=== PATIENT | female | born 1990 | race Caucasian/White ===

== ENCOUNTER 2021-12-25 17:20 | Emergency (ER) | payer SELFPAY ==
[2021-12-25 17:31] VITALS: BP 165/93; PULSE 69; RESP 16; TEMP 36.6; O2SAT 96; BMI 32.5
[2021-12-25 18:05] VITALS: BP 165/93; PULSE 69; RESP 16; TEMP 36.6; O2SAT 96; BMI 32.4
--- NOTE | 2021-12-25 18:18 | EXP.UTC ---
Discharge Plan Disposition Patient Disposition: Home, Self-Care Condition: Good Prescriptions Prescriptions: New amoxicillin-pot clavulanate 875-125 mg Tablet 1 tab PO Q12H Qty: 20 0RF ibuprofen 600 mg tablet 600 mg PO Q6HP PRN (Reason: Moderate Pain) Qty: 20 0RF Referrals Follow up/Referrals: Provider,Referral, [Primary Care Provider] - See instructions Activity Restrictions/Add. Instructions Additional Instructions/Restrictions: Take medication as prescribed Follow up with Dentist as scheduled Use dental balls as directed in the [facility] Straight to ER if any life threatening symptoms Clinical Impressions Clinical Impression: Abscess, dental Discharge ED Provider: Alma Santacruz Torey [facility] HPI General Stated complaint: toothache Mode of Arrival: Ambulatory Source of Information: Patient Limitations: No Limitations Time Seen by Provider: 12/25/21 18:18 Description of Symptoms (Recalled from Triage Doc. by RN): Pt c/o L sided lower jaw area toothache. Pt reports she broke her tooth off approx 3 months ago but started having pain approx 3 days ago that has gotten worse. Reports unable to get into dentist until next tuesday. History of Present Illness Provider Complaint: Patient state that she has had a broken tooth for a couple of months States that she woke up this morning with throbbing pain on the left side of her lower teeth that is going up into her ear State that she called the dentist and they was not able to get her in until next Tuesday but she started having some swelling so she came in to get checked Related Data Previous Rx's Medication Instructions Recorded amoxicillin 875 mg-potassium 1 tab PO Q12H #20 tabs 12/25/21 clavulanate 125 mg tablet ibuprofen 600 mg tablet 600 mg PO Q6HP PRN Moderate Pain 12/25/21 #20 tabs Allergies Allergy/AdvReac Type Severity Reaction Status Date / Time No Known Allergies Allergy Verified 12/25/21 18:21 [facility] Medical History (Updated 12/25/21 @ 18:44 by Alma Santacruz APRN) Anxiety Depression Hypertension Social History (Updated 12/25/21 @ 18:20 by Elizabet Lutz RN) Smoking Status: Unknown if ever smoked alcohol intake: never current occupational status: employed Travel in the last 8 weeks: None ROS Obtained: Yes All systems reviewed & no additional complaints except as documented and Yes Systems reviewed as appropriate & no additional complaints except as documented Eyes Eyes: Reports system reviewed and no additional complaints, except as documented and Reports as per HPI ENT Ears, Nose, Mouth, and Throat: Reports system reviewed and no additional complaints, except as documented, Reports as per HPI and Reports dental pain Cardiovascular Cardiovascular: Reports system reviewed and no additional complaints, except as documented and Reports as per HPI Respiratory Respiratory: Reports system reviewed and no additional complaints, except as documented and Reports as per HPI Physical Exam General General appearance: alert and in no apparent distress Expanded ENT Exam Teeth exam: Present fractured tooth # and other (broken tooth noted on left lower gumline with swelling and redness noted to gum) Respiratory Respiratory exam: Present normal lung sounds bilaterally; Absent respiratory distress or wheezes Cardiovascular Cardiovascular exam: Present regular rate, normal rhythm and normal heart sounds Neurological Exam Neurological exam: Present alert, oriented X3 and normal gait Medical Decision Making Nav Inquiry Pt receiving controlled substance: No Nav was queried for this patient: No Vital Signs: 12/25/21 17:31 Temperature 97.9 F Temperature Source Oral Pulse Rate [Left Radial] 69 Respiratory Rate 16 Blood Pressure [Left Arm] 165/93 H Blood Pressure Mean [Left Arm] 117 Blood Pressure Source [Left Arm] Automatic Cuff Blood Pressure Position [Left Arm] Sitting 02 Sat by Pulse Oximetry 96 Oxygen Delivery
[2021-12-25 19:11] VITALS: BP 165/93; PULSE 69; RESP 16; TEMP 36.6; O2SAT 96
== END 2021-12-25 19:37 | disposition home or self-care (01) ==
LOC: ER 17:37 → UTC 17:38
PROVIDERS: Emergency Provider Nurse Practitioner
DX: K08.89 Other specified disorders of teeth and supporting structures (principal); R68.84 Jaw pain; I10 Essential (primary) hypertension; F32.A Depression, unspecified; F41.9 Anxiety disorder, unspecified; Z79.1 Long term (current) use of non-steroidal anti-inflammatories (NSAID)
CPT/HCPCS: 99213; G0463

== ENCOUNTER 2022-05-21 20:46 | Emergency (ER) | payer OTHER, SELFPAY ==
[2022-05-21 21:20] VITALS: BP 137/92; PULSE 86; RESP 18; TEMP 36.7; O2SAT 95; BMI 33.6
[2022-05-21 21:36] VITALS: BP 141/70; PULSE 79; O2SAT 98
[2022-05-21 22:00] VITALS: BP 126/72; PULSE 81; O2SAT 97
--- NOTE | 2022-05-21 22:03 | CT_ITS ---
PROCEDURE INFORMATION: Exam: CT Head Without Contrast Exam date and time: 05/21/2022 10:13 PM Age: 31 years old Clinical indication: Pain; Headache; Additional info: Headache left side of head , left eye pain TECHNIQUE: Imaging protocol: Computed tomography of the head without contrast. Radiation optimization: All CT scans at this facility use at least one of these dose optimization techniques: automated exposure control; mA and/or kV adjustment per patient size (includes targeted exams where dose is matched to clinical indication); or iterative reconstruction. Other protocol: This patient has received 0 known CTs and 0 known cardiac nuclear medicine studies in the 12 months prior to the current study. COMPARISON: No relevant prior studies available. FINDINGS: Brain: Normal. No hemorrhage. Unremarkable white matter. No mass effect. Cerebral ventricles: No ventriculomegaly. Paranasal sinuses: Visualized sinuses are unremarkable. No fluid levels. Mastoid air cells: Visualized mastoid air cells are well aerated. Bones/joints: Unremarkable. No acute fracture. Soft tissues: Unremarkable. IMPRESSION: No acute intracranial abnormality.
[2022-05-21 22:30] VITALS: BP 116/65; PULSE 66; O2SAT 96
--- NOTE | 2022-05-21 23:06 | HMH.EDGENADL ---
Discharge Plan Disposition Patient Disposition: Home, Self-Care Condition: Good Chief Complaint: Headache Prescriptions Prescriptions: No Action amoxicillin-pot clavulanate 875-125 mg Tablet 1 tab PO Q12H Qty: 20 0RF ibuprofen 600 mg tablet 600 mg PO Q6HP PRN (Reason: Moderate Pain) Qty: 20 0RF Referrals Follow up/Referrals: Provider,Referral, MD [Primary Care Provider] - See instructions Activity Restrictions/Add. Instructions Additional Instructions/Restrictions: [id number] Motrin/Tylenol as needed. Stay well-hydrated. PCP on Tuesday. Return to ER for worsening Clinical Impressions Clinical Impression: Headache Discharge ED Provider: Romulo Nunes General Adult HPI General Chief complaint: Headache Stated complaint: pain L side of head for 4 days Time Seen by Provider: 05/21/22 21:45 Mode of Arrival: Ambulatory Source of Information: Patient Limitations: No Limitations Description of Symptoms (Recalled from ER Triage Doc. by RN): pt c/o left sided headache that began Tuesday. States she woke up with the headache but has not been able to get rid of it. Says the pain will occassionally lessen but always returns. Says the pain is in the left side of her head, left ear and left side of her neck and left eye. Does report seeing her pcp today and was told to take Tylenol and see if that helps her pain. History of Present Illness HPI narrative: 31yo F presents the emergency department secondary to headache that began on Tuesday. States she does not typically suffer from headaches. Complains of left-sided and feels like her left eye is protruding outward. Denies any change in her vision out of her left eye. States the pain radiates into her left neck. Mild nausea. Was seen by PCP and told to take Tylenol. No trauma. Reports light and noises make her headache worse. States recent glasses prescription from February. Related Data Previous Rx's Medication Instructions Recorded amoxicillin 875 mg-potassium 1 tab PO Q12H #20 tabs 12/25/21 clavulanate 125 mg tablet ibuprofen 600 mg tablet 600 mg PO Q6HP PRN Moderate Pain 12/25/21 #20 tabs Allergies Allergy/AdvReac Type Severity Reaction Status Date / Time No Known Allergies Allergy Verified 12/25/21 18:21 [facility] Disclaimer: The information contained in this section may have been updated after the patient was seen, as this information can be updated by other users. Medical History Anxiety Depression Hypertension Social History Smoking Status: Current every day smoker alcohol intake: never current occupational status: employed Travel in the last 8 weeks: None ROS Obtained: Yes Systems reviewed as appropriate & no additional complaints except as documented Physical Exam General General appearance: alert Comment: Appears acutely uncomfortable Head Head exam: atraumatic and normocephalic Eye Eye exam: Present normal appearance, PERRL and EOMI; Absent scleral icterus or conjunctival redness Neck Neck exam: Present normal inspection, full ROM and trachea midline Respiratory Respiratory exam: Present normal lung sounds bilaterally; Absent respiratory distress Cardiovascular Cardiovascular exam: Present regular rate and normal rhythm Abdominal Exam Abdominal exam: Present soft Extremities Exam Extremities exam: Present normal inspection and full ROM; Absent tenderness Neurological Exam Neurological exam: Present alert, oriented X3, CN II-XII intact and normal gait Psychiatric Psychiatric exam: Present normal affect Skin Skin exam: Present warm, dry and intact Medical Decision Making Medical Records Medical records reviewed: Yes I reviewed the patient's medical records. Nav Inquiry Pt receiving controlled substance: No Nav was queried for this patient: No Vital Signs: 05/21/22 21:20 05/21/22 21:36
[2022-05-21 23:47] VITALS: BP 128/80; PULSE 75; RESP 17; TEMP 36.7; O2SAT 98
== END 2022-05-21 23:53 | disposition home or self-care (01) ==
PROVIDERS: Emergency Provider Family Medicine
DX: R51.9 Headache, unspecified (principal); F41.9 Anxiety disorder, unspecified; I10 Essential (primary) hypertension; F17.210 Nicotine dependence, cigarettes, uncomplicated
CPT/HCPCS: 70450; 96361; 96374; 96375; 99285; J2405